=== PATIENT | female | born 1955 | race Caucasian/White ===

== ENCOUNTER → 2019-05-18 13:57 | Outpatient (BNVA) | payer MEDICARE, SELFPAY | PROVIDERS: Family Provider Registered Nurse; PCP Registered Nurse; Visit Provider Registered Nurse | DX: R30.9 Painful micturition, unspecified (principal); R39.9 Unspecified symptoms and signs involving the genitourinary system; F32.89 Other specified depressive episodes; F32.9 Major depressive disorder, single episode, unspecified | CPT/HCPCS: 81000 ==

== ENCOUNTER → 2019-06-24 12:23 | Outpatient (BNVA) | payer MEDICARE, SELFPAY | PROVIDERS: Family Provider Registered Nurse; PCP Registered Nurse; Visit Provider Registered Nurse | DX: R30.0 Dysuria (principal); N39.0 Urinary tract infection, site not specified | CPT/HCPCS: 80053; 81000 ==

== ENCOUNTER 2020-06-17 08:40 | Outpatient (CLI) | payer MEDICARE, SELFPAY ==
--- NOTE | 2020-06-17 08:45 | NM_ITS ---
WS: [id number] NUCLEAR MEDICINE WHOLE BODY BONE SCAN HISTORY: ELEVATED ALKALINE PHOSPHATASE LEVEL ALSO FOR CT TODAY COMPARISON: None available. TECHNIQUE: The patient was injected with 24.2 mCi of Technetium 99m HDP and serial whole-body scintig akin have been performed with anterior and posterior images. Focal area of moderate increased uptake centered in the RIGHT mid thoracic spine at T8-9. There are n o additional abnormalities within the spine. Mild bilateral AC joint and knee joint arthritis. Normal soft tissue uptake. Kidneys are visualized. NM/NM bone scan whole body* [id number] IMPRESSION: 1. Focal moderate uptake in the RIGHT thoracic spine at T8-9. Radiographs perf ormed on the same day. This abnormality corresponds to a very large bridging os teophyte. No bone destruction radiographically. This is probably an osteophyte and less likely metastatic disease. 2. Mild AC joint and knee joint arthritis.
--- NOTE | 2020-06-17 08:45 | CT_ITS ---
WS: [id number] CT ABDOMEN AND PELVIS WITH CONTRAST HISTORY: ELEVATED ALKALINE PHOSPHATASE LEVEL ALSO FOR NUC MED TECHNIQUE: Imaging performed of the abdomen and pelvis with IV contrast. Single phase imaging of the abdomen. Coronal and sagittal reformats are submitted. All CT scans at [facility] use at least one of these dose optimization techniques: automated exposure control; mA and/or kV adjustment per patient size (includes targeted exams where dose is matched to clinical indication); or iterativ e reconstruction. IV CONTRAST: Omnipaque 300; 95 mL IV. Oral contrast: Yes. DLP: 1924.06 mGy.cm COMPARISON: 11/21/2017 Lower thorax: Lung bases are clear. Heart is normal size. Small hiatal hernia. There is increased asy mmetry throughout the visualized RIGHT breast which is asymmetric to the LEFT. Asymmetry may be due t o only partial inclusion of the RIGHT breast. There is mild thickening at the nipple. These findings were not definitely present in 2018. No recent mammogram for review. Liver/biliary system: Normal size liver with very minimal intrahepatic duct dilatation which is proba doris physiologic. The common bile duct at the pancreatic head is normal. Gallbladder: Status post cholecystectomy. Pancreas: Normal. Spleen: Normal. Adrenal glands: Normal RIGHT adrenal gland. Stable LEFT adrenal nodule measuring 10 mm. Right kidney: Normal. Left kidney: Normal size kidney. Hypoechoic mass measuring 1.6 cm from the inferior lateral LEFT kidn ey. Hounsfield units are slightly elevated but this nodule is stable since 11/21/2017. There is an add itional too small to characterize cortical hypodensity in the mid kidney. Aorta: Normal. Lymphadenopathy: None. Free fluid: None. GI tract: Normal appendix. No obstruction or mucosal abnormalities. There are a few diverticula in th e descending and sigmoid colon without acute inflammation. Abdominal wall: Unremarkable abdominal wall. No hernia. Pelvis: Prior hysterectomy. Urinary bladder minimally distended. No adenopathy or ascites. Bones: Mild bilateral hip joint arthritis. Subchondral cystic changes in the acetabulum are stable si nce 2018. CT/CT abdomen pelvis w con* [id number] IMPRESSION: 1. Low-attenuation 1.6 cm nodule in the LEFT kidney stable since 2018 therefor e most likely benign. 2. Mild sigmoid diverticulosis without acute diverticulitis. 3. Status post cholecystectomy and hysterectomy. 4. Mild asymmetry in the visualized RIGHT breast. Recommend follow-up mammogra phy. No recent mammogram has been performed.
[2020-06-17 09:27] LABS: Blood Urea Nitrogen 23 mg/dL (8-23); Glomerular Filtration Rate 62.6 mL/min (90-130)
[2020-06-17] MEDS: iohexol 300 mg/mL 100 mL Btl IV (10:03)
[2020-06-17] MEDS: iohexol 300 mg/mL 50 mL Btl PO (10:03)
--- NOTE | 2020-06-17 11:15 | XR_ITS ---
WS: [id number] THORACIC SPINE TECHNIQUE: AP and lateral views are performed. HISTORY: BONE SCAN COMPARISON COMPARISON: Bone scan 06/17/2020 Mild increase in thoracic kyphosis. Pedicles are all identified. There are large osteophytes along th e RIGHT lateral margin of the mid to lower thoracic spine. The largest osteophytes are clawlike at T8 -9. This corresponds to the abnormality seen on the recent bone scan. Favor the changes on bone scan are probably related to the osteophyte. Prior cholecystectomy. XR/XR thoracic spine 2V [id number] IMPRESSION: Thoracic spondylosis with marginal osteophytes. No fractures or bone destructio n.
== END 2020-06-17 08:41 | disposition home or self-care (01) ==
LOC: NM 08:44
PROVIDERS: PCP Nurse Practitioner Family; Visit Provider Nurse Practitioner Family
DX: R74.8 Abnormal levels of other serum enzymes (principal); M47.814 Spondylosis without myelopathy or radiculopathy, thoracic region; M25.78 Osteophyte, vertebrae; M13.869 Other specified arthritis, unspecified knee; Z90.49 Acquired absence of other specified parts of digestive tract; Z90.710 Acquired absence of both cervix and uterus; N64.89 Other specified disorders of breast
CPT/HCPCS: 36415; 72070; 74177; 78306; 82565; 84520; A9561

== ENCOUNTER → 2020-12-22 15:42 | Outpatient (BNVA) | payer MEDICARE, SELFPAY | PROVIDERS: PCP Nurse Practitioner Family; Referring Provider Nurse Practitioner Family; Visit Provider Podiatrist Foot & Ankle Surgery | DX: M79.672 Pain in left foot (principal); M79.671 Pain in right foot; M21.612 Bunion of left foot; M21.611 Bunion of right foot | CPT/HCPCS: 73630 ==

== ENCOUNTER 2021-05-25 | Outpatient (CLI) | payer MEDICARE, SELFPAY | END 2021-05-25 23:59 | disposition home or self-care (01) | LOC: RAD 10-03 12:10 | PROVIDERS: PCP Nurse Practitioner Family; Visit Provider Nurse Practitioner Women's Health | DX: Z20.2 Contact with and (suspected) exposure to infections with a predominantly sexual mode of transmission (principal) | CPT/HCPCS: 86592; 86803; 87340; 87491; 87591; 87661; 87806 ==

== ENCOUNTER → 2021-06-07 11:13 | Outpatient (BNVA) | payer MEDICARE, SELFPAY | PROVIDERS: PCP Nurse Practitioner Family; Visit Provider Podiatrist Foot & Ankle Surgery | DX: M72.2 Plantar fascial fibromatosis (principal) | CPT/HCPCS: 20550; J1100; J3301; J3490 ==

== ENCOUNTER 2021-06-14 07:02 | Day surgery (SDC) | payer MEDICARE, SELFPAY ==
[2021-06-12 09:53] VITALS: BMI 32.1
--- NOTE | 2021-06-14 07:30 | W.PM.OPSFHP ---
Same Day Surgery H&P Indication for Procedure/HPI DATE OF PROCEDURE: June 14, 2021 CHIEF COMPLAINT/INDICATIONFOR SURGICAL PROCEDURE: egd/colon PREOP DIAGNOSIS: diagnostic PLANNED PROCEDURE: Operation Date: 06/14/21 08:15 Proposed Procedures p colonoscopy 83310/egd 54082/constipation K59.00,ruq abd pain R10.11(Not Applicable) - Sherman Craig MD s EGD 63083/ K59.00/R10.11(Not Applicable) - Sherman Craig MD Medications/Allergies* Home Medications Medication Instructions Recorded Confirmed Type cholecalciferol (vitamin D3) 50 50 mcg PO ONCE 03/16/19 06/12/21 History mcg (2,000 unit) capsule vitamin B12 1,000 mcg-folic acid 1 tab SUBLINGUAL DAILY 03/16/19 06/12/21 History 400 mcg sublingual tablet gabapentin 100 mg capsule 100 mg PO QID cap 12/22/20 06/12/21 History biotin 1 mg capsule 1 mg PO DAILY 05/25/21 06/12/21 History potassium chloride 20 mEq/15 mL 20 meq PO DAILY 06/12/21 06/12/21 History oral liquid sertraline 50 mg tablet (Zoloft) 150 mg PO Q24H 06/12/21 06/12/21 History Allergies/Adverse Reactions Allergy/AdvReac Type Severity Reaction Status Date / Time aspirin Allergy Intermediate ADR-Abdominal Verified 06/12/21 09:49 Pain Pertinent History/Comorbid Conditions* Medical History (Updated 05/31/21 @ 08:25 by Brandon Obando MD) Anxiety associated with depression CHF (congestive heart failure) Fibromyalgia GERD (gastroesophageal reflux disease) Hypertension No pertinent past medical history neghx: htn,dm,thyroid,dvt/pe PCP: Orestes Hernandez Surgical History (Updated 05/25/21 @ 13:35 by Miguelina Blue APN, WHLISA) History of colonoscopy with polypectomy 2019 History of hysterectomy (~2006) LAVH, bilateral salpingectomy History of laparoscopy Bilateral oophorectomy Status post laparoscopic cholecystectomy Family History (Updated 05/25/21 @ 12:57 by Triny Martin LPN) Colon cancer Father dx age 66 Heart disease Father Denies family history of Ovarian cancer Diabetes Hypercholesteremia Breast cancer Hypertension Uterine cancer Thyroid disease Stroke Social History Smoking and tobacco status: never smoked Second hand smoke exposure: Yes Pertinent Exam Findings alert, oriented x 3 and regular rate & rhythm Recommendations Surgery/Procedure today Coding Level of Care Code Acute Emt Dispatcher for Alberto Lucas
[2021-06-14 07:33] VITALS: BP 131/76; PULSE 60; RESP 18; TEMP 36.2; O2SAT 97
--- NOTE | 2021-06-14 07:47 | P.ANESASSM_ITS ---
Pre-Anesthetic Assessment Height/Weight: Height 1.55 m Weight 77.111 kg Temp Pulse Resp BP Pulse Ox 97.2 F L 60 18 131/76 97 06/14/21 07:33 06/14/21 07:33 06/14/21 07:33 06/14/21 07:33 06/14/21 07:33 Preop Diagnosis: diagnostic Operation Date: 06/14/21 08:15 Proposed Procedures p colonoscopy 42273/egd 56685/constipation K59.00,ruq abd pain R10.11(Not A pplicable) - Sherman Craig MD s EGD 99205/ K59.00/R10.11(Not Applicable) - Sherman Craig MD Familial anesthetic complications: None Was Beta Quintin taken within 24 hours: N/A Was Clonidine taken within 24 hours: N/A Last intake: Intake Last Liquid Date 06/13/21 Last Liquid Time 23:00 Last Solid Date 06/12/21 Last Solid Time 20:00 Social No alcohol and No tobacco Exam alert, oriented x 3, clear to auscultation bilaterally and regular rate & rhythm Airway Submandibular: within normal limits Cervical ROM: within normal limits Mallampati: Class II Dentition: false CV/HEM Congestive Heart Failure and Hypertension Metabolic Morbid Obesity Neuropsych Anxiety and Depression Anesthetic Plan ASA status: 3 Anesthesia: MAC Medications/Allergies Home Medications Medication Instructions Recorded Confirmed Last Taken Type cholecalciferol (vitamin D3) 50 50 mcg PO DAILY 03/16/19 06/14/21 06/13/21 History mcg (2,000 unit) capsule vitamin B12 1,000 mcg-folic acid 1 tab SUBLINGUAL DAILY 03/16/19 06/12/21 06/13/21 History 400 mcg sublingual tablet oxybutynin chloride 5 mg tablet 5 mg PO DAILY #90 tab 04/09/19 06/12/21 06/13/21 Rx lisinopril 5 mg tablet 5 mg PO BID #60 tab 05/14/19 06/12/21 06/13/21 Rx gabapentin 100 mg capsule 100 mg PO QID cap 12/22/20 06/12/21 06/13/21 History lactulose 10 gram/15 mL oral 15 ml PO BID #473 ml 05/08/21 06/12/21 Unknown Rx solution biotin 1 mg capsule 1 mg PO DAILY 05/25/21 06/12/21 06/13/21 History potassium chloride 20 mEq/15 mL 20 meq PO DAILY 06/12/21 06/12/21 06/13/21 History oral liquid sertraline 50 mg tablet (Zoloft) 150 mg PO Q24H 06/12/21 06/12/21 06/13/21 History Allergies Allergy/AdvReac Type Severity Reaction Status Date / Time aspirin Allergy Intermediate ADR-Abdominal Verified 06/12/21 09:49 Pain PFSH Anesthesia Medical History Anxiety associated with depression CHF (congestive heart failure) Fibromyalgia GERD (gastroesophageal reflux disease) Hypertension No pertinent past medical history neghx: htn,dm,thyroid,dvt/pe PCP: Orestes Hernandez Surgical History History of colonoscopy with polypectomy 2019 History of hysterectomy (~2006) LAVH, bilateral salpingectomy History of laparoscopy Bilateral oophorectomy Status post laparoscopic cholecystectomy Family History Father Colon cancer dx age 66 Heart disease Denies family history of Ovarian cancer Diabetes Hypercholesteremia Breast cancer Hypertension Uterine cancer Thyroid disease Stroke Social History Smoking and tobacco status: never smoked Second hand smoke exposure: Yes Data Anesthesia Cardiac Studies: No Data to Display
[2021-06-14] MEDS: sodium chloride 0.9% 1,000 ML 30 ML IV (07:50)
[2021-06-14 08:46] VITALS: BP 100/50; PULSE 52; RESP 18; TEMP 36.5; O2SAT 94
--- NOTE | 2021-06-14 08:47 | ANE.PACU2 ---
Inpatient post-anesthesia follow up: Airway intact: Yes Vital signs: Temperature 97.7 F Pulse Rate 52 Respiratory Rate 18 Blood Pressure 100/50 Pulse Oximetry 94 Oxygen Delivery Me thod Room Air Oxygen Flow Rate Fraction of Inspir ed Oxygen Hydration adequate: Yes Nausea and vomiting: No Pain level: 1 Mental status: Baseline
[2021-06-14 08:51] VITALS: BP 104/59; PULSE 50; RESP 18; O2SAT 95
== END 2021-06-14 09:13 | disposition home or self-care (01) ==
PROVIDERS: PCP Nurse Practitioner Family; Visit Provider Surgery
PROC: 0DJD8ZZ Inspection of Lower Intestinal Tract, Via Natural or Artificial Opening Endoscopic (ICD-10-PCS; CPT 45378; principal; 2021-06-14 08:15)
PROC: 0DJ08ZZ Inspection of Upper Intestinal Tract, Via Natural or Artificial Opening Endoscopic (ICD-10-PCS; CPT 43235; 2021-06-14 08:15)
DX: K59.00 Constipation, unspecified (principal); R10.11 Right upper quadrant pain; K57.30 Diverticulosis of large intestine without perforation or abscess without bleeding; I11.0 Hypertensive heart disease with heart failure; I50.9 Heart failure, unspecified; E66.01 Morbid (severe) obesity due to excess calories; Z68.32 Body mass index [BMI] 32.0-32.9, adult; F41.9 Anxiety disorder, unspecified; F32.9 Major depressive disorder, single episode, unspecified; Z80.0 Family history of malignant neoplasm of digestive organs
CPT/HCPCS: 43235; 45385; 88305; J2704; J7030

== ENCOUNTER → 2021-06-27 14:58 | Outpatient (BNVA) | payer MEDICARE, SELFPAY | PROVIDERS: PCP Nurse Practitioner Family; Visit Provider Surgery | DX: Z09 Encounter for follow-up examination after completed treatment for conditions other than malignant neoplasm (principal) ==

== ENCOUNTER → 2021-06-29 12:35 | Outpatient (BNVA) | payer MEDICARE, SELFPAY | PROVIDERS: PCP Nurse Practitioner Family; Visit Provider Surgery | DX: Z09 Encounter for follow-up examination after completed treatment for conditions other than malignant neoplasm (principal) | CPT/HCPCS: 99212 ==

== ENCOUNTER → 2022-08-27 10:21 | Outpatient (BNVA) | payer MEDICARE, SELFPAY | PROVIDERS: PCP Nurse Practitioner Family; Visit Provider Podiatrist Foot & Ankle Surgery | DX: M72.2 Plantar fascial fibromatosis (principal) | CPT/HCPCS: 99213 ==

== ENCOUNTER 2022-10-22 10:54 | Outpatient (CLI) | payer MEDICARE, MEDICAID, SELFPAY | END 2022-10-22 10:55 | disposition home or self-care (01) | LOC: SPT 10:55 | PROVIDERS: PCP Nurse Practitioner Family; Visit Provider Podiatrist Foot & Ankle Surgery | DX: M72.2 Plantar fascial fibromatosis (principal) | CPT/HCPCS: 97760; 99213; L4397 ==

== ENCOUNTER → 2024-01-13 13:02 | Outpatient (BNVA) | payer MEDICARE, MEDICAID, SELFPAY | PROVIDERS: PCP Nurse Practitioner Family; Visit Provider Podiatrist Foot & Ankle Surgery | DX: S92.425A Nondisplaced fracture of distal phalanx of left great toe, initial encounter for closed fracture; W01.0XXA Fall on same level from slipping, tripping and stumbling without subsequent striking against object, initial encounter | CPT/HCPCS: 28490; 73630 ==

== ENCOUNTER → 2024-08-17 08:34 | Outpatient (BNVA) | payer MEDICARE, MEDICAID, SELFPAY | PROVIDERS: PCP Family Medicine; Visit Provider Physician Assistant | DX: S62.357A Nondisplaced fracture of shaft of fifth metacarpal bone, left hand, initial encounter for closed fracture (principal); W19.XXXA Unspecified fall, initial encounter; M19.032 Primary osteoarthritis, left wrist; M67.432 Ganglion, left wrist | CPT/HCPCS: 73110 ==

== ENCOUNTER 2024-08-17 11:02 | Outpatient (CLI) | payer MEDICARE, MEDICAID, SELFPAY | END 2024-08-17 11:03 | disposition home or self-care (01) | LOC: SPT 11:03 | PROVIDERS: PCP Family Medicine; Visit Provider Physician Assistant | DX: Z46.89 Encounter for fitting and adjustment of other specified devices (principal); S62.309A Unspecified fracture of unspecified metacarpal bone, initial encounter for closed fracture; X58.XXXA Exposure to other specified factors, initial encounter | CPT/HCPCS: 97760; 99213; L3984 ==

== ENCOUNTER → 2024-09-15 09:36 | Outpatient (BNVA) | payer OTHER, MEDICAID, SELFPAY | PROVIDERS: PCP Family Medicine; Visit Provider Physician Assistant | DX: S62.357A Nondisplaced fracture of shaft of fifth metacarpal bone, left hand, initial encounter for closed fracture (principal); X58.XXXA Exposure to other specified factors, initial encounter; M19.032 Primary osteoarthritis, left wrist | CPT/HCPCS: 73110 ==

== ENCOUNTER 2024-09-15 10:40 | Outpatient (CLI) | payer OTHER, MEDICAID, SELFPAY | END 2024-09-15 10:41 | disposition home or self-care (01) | LOC: SPT 10:41 | PROVIDERS: PCP Family Medicine; Visit Provider Physician Assistant | DX: Z46.89 Encounter for fitting and adjustment of other specified devices (principal); M19.032 Primary osteoarthritis, left wrist | CPT/HCPCS: L3908 ==

== ENCOUNTER 2024-09-30 10:41 | Outpatient (RCR) | payer OTHER, MEDICAID, SELFPAY | END 2024-10-01 23:59 | disposition home or self-care (01) | LOC: SOT 10:41 | PROVIDERS: PCP Family Medicine; Visit Provider Physician Assistant | DX: S62.357A Nondisplaced fracture of shaft of fifth metacarpal bone, left hand, initial encounter for closed fracture (principal); M25.532 Pain in left wrist; X58.XXXA Exposure to other specified factors, initial encounter | CPT/HCPCS: 97110; 97165; 97530 ==

== ENCOUNTER 2024-10-02 05:00 | Outpatient (RCR) | payer OTHER, MEDICAID, SELFPAY | END 2024-11-01 23:59 | disposition home or self-care (01) | LOC: SOT 05:00 | PROVIDERS: PCP Family Medicine; Visit Provider Physician Assistant | DX: S62.357A Nondisplaced fracture of shaft of fifth metacarpal bone, left hand, initial encounter for closed fracture (principal); X58.XXXA Exposure to other specified factors, initial encounter; M25.532 Pain in left wrist | CPT/HCPCS: 97022; 97110; G0283 ==

== ENCOUNTER → 2024-10-13 09:22 | Outpatient (BNVA) | payer OTHER, MEDICAID, SELFPAY | PROVIDERS: PCP Family Medicine; Visit Provider Physician Assistant | DX: S62.357A Nondisplaced fracture of shaft of fifth metacarpal bone, left hand, initial encounter for closed fracture (principal); M19.032 Primary osteoarthritis, left wrist; W19.XXXA Unspecified fall, initial encounter | CPT/HCPCS: 73130; 99213 ==

== ENCOUNTER → 2024-10-23 10:02 | Outpatient (BNVA) | payer OTHER, MEDICAID, SELFPAY | PROVIDERS: PCP Family Medicine; Visit Provider Physician Assistant | DX: M19.032 Primary osteoarthritis, left wrist (principal) | CPT/HCPCS: 20600; 20605; 99213; J3301; J3490 ==

== ENCOUNTER → 2025-01-27 08:50 | Outpatient (BNVA) | payer MEDICARE, MEDICAID, SELFPAY | PROVIDERS: PCP Family Medicine; Visit Provider Physician Assistant | DX: M19.032 Primary osteoarthritis, left wrist (principal) | CPT/HCPCS: 20600; 20605; 99213; J3301; J3490 ==